=== PATIENT | male | born 1950 | race Caucasian/White ===

== ENCOUNTER 2017-01-04 08:46 | Day surgery (SDC) | payer BC ==
--- NOTE | ~2017-01-04 | EGD ---
EGD REPORT [facility] [address] [address] NAME: TASIA OSORIO : 50 STATUS : REG [facility]#: [id number] AGE: 66 ADM/REG DATE : 01/04/17 MR#: [id number] REPORT SERV DATE: 01/04/17 DICTATED BY: LESTER GARBER DATE: 01/04/17 REPORT STATUS : Draft TRANS[facility]IBED [facility]: [facility] DATE: 01/04/17 Endoscopy Center Patient Name: Tasia Osorio Date of : 1950 Attending MD: LESTER GARBER MD Procedure Date No Time: 01/04/2017 Procedure: Colonoscopy Indications: High risk colon cancer surveillance: Personal history of colonic polyps Medicines: Propofol per Anesthesia Complications: No immediate complications. Procedure: Pre-Anesthesia Assessment: - ASA Grade Assessment: IV - A patient with severe systemic disease that is a constant threat to life. After I obtained informed consent, the scope was passed under direct vision. Throughout the procedure, the patient's blood pressure, pulse, and oxygen saturations were monitored continuously. The PCF [id number] was introduced through the anus and advanced to 3 cm into the ileum. The colonoscopy was performed without difficulty. The patient tolerated the procedure well. The quality of the bowel preparation was adequate to identify polyps 6 mm and larger in size. Findings: The terminal ileum appeared normal. A flat polyp was found in the distal transverse colon. The polyp was 5 mm in size. The polyp was removed with a jumbo cold forceps. Resection and retrieval were complete. Multiple medium-mouthed diverticula were found in the sigmoid colon. The retroflexed view of the distal rectum and anal verge was normal and showed no anal or rectal abnormalities. Impression: - The examined portion of the ileum was normal. - One 5 mm polyp in the distal transverse colon. Resected and retrieved. - Diverticulosis in the sigmoid colon. Recommendation: - The patient will be observed post-procedure, until all discharge criteria are met. - Return to previous diet today. - Resume Plavix (clopidogrel) at prior dose today. - Await pathology results. - The findings and recommendations were discussed with the patient and their designated guardian. EGD REPORT [address] [place]. [address] NAME: TASIA OSORIO : [birth year] STATUS : REG [facility] PAT#: [id number] AGE: 66 ADM/REG DATE : 01/04/17 MR#: [id number] REPORT SERV DATE: 01/04/17 DICTATED BY: LESTER GARBER DATE: 01/04/17 REPORT STATUS : Draft TRANSCRIBED BY: [employer] DATE: 01/04/17 - After the procedure, if you experience any pain in abdomen or chest,shortness of breath,fever,chills,blood in stool,rectal bleeding,vomiting of any material,nausea,black stools or weakness or dizziness, GO TO THE EMERGENCY IMMEDIATELY!!!!!!!!! Procedure Code(s): --- Professional --- 77458, Colonoscopy, flexible, proximal to splenic flexure; with biopsy, single or multiple Diagnosis Code(s): --- Professional --- K57.30, Diverticulosis of large intestine without perforation or abscess without bleeding D12.3, Benign neoplasm of transverse colon Z86.010, Personal history of colonic polyps CPT copyright 2013 [employer]. All rights reserved. The codes documented in this report are preliminary and upon paste mixing supervisor review may be revised to meet current compliance requirements. Lester Garber MD LESTER GARBER MD 01/04/2017 12:09 PM This report has been signed electronically. Number of Addenda: 0 Note Initiated On: 01/04/2017 11:25 AM Scope Withdrawal Time 0 hours 7 minutes 41 seconds [id number] [place] [id number]
--- NOTE | ~2017-01-04 | EGD ---
EGD REPORT [facility] 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 Procedure: Pre-Anesthesia Assessment: - ASA Grade Assessment: IV - A patient with severe systemic disease that is a constant threat to life. After obtaining informed consent, the endoscope was passed under direct vision. Throughout the procedure, the patient's blood pressure, pulse, and oxygen saturations were monitored continuously. The GIF H190 [id number] was introduced through the mouth, and advanced to the second part of duodenum. The upper GI endoscopy was accomplished without difficulty. The patient tolerated the procedure well. Findings: The esophagus and gastroesophageal junction were examined with white light. 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 Two tongues of salmon-colored mucosa were present. The maximum longitudinal extent of these esophageal mucosal changes was 0.5 cm in length. Mucosa was biopsied with a cold forceps for histology randomly at intervals of 0.5 cm in the lower third of the esophagus. One specimen bottle was sent to pathology. There is no endoscopic evidence of hiatus hernia in the entire examined stomach. The examined duodenum was normal. 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 Biopsied. - Normal examined duodenum. Procedure Code(s): --- Professional --- 09788, Esophagogastroduodenoscopy, flexible, transoral; with biopsy, single or multiple Diagnosis Code(s): --- Professional --- K22.70, Bonilla's esophagus without dysplasia EGD REPORT [facility] [address] [place] [address] [place]. [address] NAME: TASIA OSORIO : [birth year] STATUS : REG [facility] PAT#: [id number] AGE: 66 ADM/REG DATE : 01/04/17 MR#: [id number] REPORT SERV DATE: 01/04/17 DICTATED BY: LESTER GARBER. DATE: 01/04/17 REPORT STATUS : Draft TRANSCRIBED BY: [employer] DATE: 01/04/17 CPT copyright 2013 [employer]. All rights reserved. The codes documented in this report are preliminary and upon health information coder review may be revised to meet current compliance requirements. Lester Garber MD LESTER GARBER MD 01/04/2017 12:06 PM This report has been signed electronically. Number of Addenda: 0 Note Initiated On: 01/04/2017 11:27 AM Scope Withdrawal Time 0 hours 0 minutes 0 seconds [address] [facility] [place] [address]
[~2017-01-04 08:46] MED LIST: ALEVE220 MG PO; ASAB PO; ASABAYER PO; ATV1 PO; COREG12 PO; COREG25 PO; COREG6 PO; GLUCCHONDR PO; INVOKANA300 MG PO; ISOSORB DIN30 MG PO; L20 PO; L40 PO; LANTUS SC; LIPITOR40 PO; NEUR300 PO; NOVOLOG SC; PLAVIX PO; PRILO PO; PRILOSEC40 MG PO; PRIN10 PO; PROAIR HFA INH; TOUJEO SQ; ULTRAM50 PO
== END 2017-01-04 23:59 | disposition home health service (06) ==
LOC: DMU 08:46
PROVIDERS: Internal Medicine Gastroenterology
PROC: 0DB38ZX Excision of Lower Esophagus, Via Natural or Artificial Opening Endoscopic, Diagnostic (ICD-10-PCS; principal; 2017-01-04 11:00)
PROC: 0DBL8ZX Excision of Transverse Colon, Via Natural or Artificial Opening Endoscopic, Diagnostic (ICD-10-PCS; 2017-01-04 11:00)
DX: Z12.11 Encounter for screening for malignant neoplasm of colon (principal); D12.3 Benign neoplasm of transverse colon; K57.30 Diverticulosis of large intestine without perforation or abscess without bleeding; I48.91 Unspecified atrial fibrillation; I48.92 Unspecified atrial flutter; I25.10 Atherosclerotic heart disease of native coronary artery without angina pectoris; I73.9 Peripheral vascular disease, unspecified; J44.9 Chronic obstructive pulmonary disease, unspecified; K21.9 Gastro-esophageal reflux disease without esophagitis; I25.2 Old myocardial infarction; E11.9 Type 2 diabetes mellitus without complications; F32.9 Major depressive disorder, single episode, unspecified; I50.9 Heart failure, unspecified; I11.0 Hypertensive heart disease with heart failure; Z95.1 Presence of aortocoronary bypass graft; Z86.010 Personal history of colon polyps; Z88.5 Allergy status to narcotic agent; Z88.8 Allergy status to other drugs, medicaments and biological substances; Z79.02 Long term (current) use of antithrombotics/antiplatelets; Z79.82 Long term (current) use of aspirin; Z79.4 Long term (current) use of insulin; Z79.899 Other long term (current) drug therapy; Z87.891 Personal history of nicotine dependence; Z90.49 Acquired absence of other specified parts of digestive tract; Z98.890 Other specified postprocedural states
CPT/HCPCS: 82962; 88305; J2370; J2405